=== PATIENT | male | born 1995 | race Caucasian/White ===

== ENCOUNTER 2022-12-22 16:04 | Emergency (ER) | payer OTHER, SELFPAY ==
[2022-12-22 16:07] VITALS: BP 124/58; PULSE 85; RESP 18; TEMP 36.8; O2SAT 97; BMI 25.8
--- NOTE | 2022-12-22 16:11 | DI.RAD.S_ITS ---
PROCEDURE: XR ANKLE RT MIN 3V INDICATIONS: fall with injury TECHNIQUE: 3 views of the ankle were acquired. COMPARISON: None. FINDINGS: Bones: Spiral fracture through the distal tibia shaft. Soft tissues: No tibiotalar joint effusion. Achilles tendon appears normal. IMPRESSION: Spiral fracture through the distal tibia shaft. Dictated by: Ever Martínez M.D. on 12/22/2022 at 16:56 Approved by: Ever Martínez M.D. on 12/22/2022 at 16:57
--- NOTE | 2022-12-22 16:53 | DI.RAD.S_ITS ---
PROCEDURE: XR TIBIA FUBULA RT 2V INDICATIONS: distal tibia fracture TECHNIQUE: 2 views of the tibia and fibula were acquired. COMPARISON: [facility], CR, XR ANKLE RT MIN 3V, 12/22/2022, 16:31. FINDINGS: Bones: Mildly displaced fracture lines can be seen involving the distal tibial shaft. No associated fibular fracture is seen. No more proximal fracture can be seen. Incidental note is made of an enthesophyte at the Achilles insertion. Soft tissues: No suspicious soft tissue calcifications or masses. IMPRESSION: Distal tibial shaft fracture. No additional more proximal fracture can be seen. Dictated by: Dave Kelly M.D. on 12/22/2022 at 16:36 Approved by: Dave Kelly M.D. on 12/22/2022 at 16:37
--- NOTE | 2022-12-22 17:02 | ED.LOWEXIN ---
HPI - Extremity Injury (Lower) General Chief Complaint: Extremity Injury, Lower Stated Complaint: rt ankle injury Time Seen by Provider: 12/22/22 16:51 Source: patient Mode of arrival: Wheelchair History of Present Illness HPI Narrative: 27-year-old male who is here for evaluation of right lower extremity injury. He states that he was wrestling left see evening and felt and heard a pop in his right ankle. Since that time has had quite a bit of difficulty walking on it. Is also having swelling. He did wrap it with an Urban bandage. No prior injury. Related Data Allergies Allergy/AdvReac Type Severity Reaction Status Date / Time No Known Drug Allergies Allergy Verified 12/22/22 16:07 Review of Systems Constitutional Constitutional: Reports system reviewed and no additional complaints, except as documented Musculoskeletal Musculoskeletal: Reports system reviewed and no additional complaints, except as documented Integumentary/Breasts Skin/Breast: Reports system reviewed and no additional complaints, except as documented Neurologic Neurologic: Reports system reviewed and no additional complaints, except as documented Patient History Social History Smoking Status: Never smoker Smoking Status: Never smoker alcohol intake frequency: a few times a month Substance Use Type: does not use Exam Initial Vital Signs Initial Vital Signs: Vital Signs Temperature 98.3 F 12/22/22 16:07 Pulse Rate 85 12/22/22 16:07 Respiratory Rate 18 12/22/22 16:07 Blood Pressure 124/58 L 12/22/22 16:07 Pulse Oximetry 97 12/22/22 16:07 Oxygen Delivery Method Room Air 12/22/22 16:07 HENME Head: normal to inspection and normocephalic Skin General: no rashes or lesions noted Neuro Sensory Exam: no sensory deficits noted Extrem Other: No proximal fibula tenderness. No proximal tibia tenderness. He is tender on the distal tibia. Also tender along the lateral malleolus. No foot tenderness. Achilles tendon is intact. Procedures Orthopedic Splinting/Casting Injury #1: Side: right Lower Extremity Injury Location: lower leg Lower Extremity Immobilizer: posterior splint and stirrup splint Other Orthopedic Equipment: crutches Post splinting neuro exam: intact Post splinting vascular exam: intact Placed by: Nursing Course Orders Ordered: ED Orders 12/22/22 16:11 XR ankle RT min 3V Stat 12/22/22 16:53 XR tibia fibula RT 2V Stat Vital Signs Vital signs: Vital Signs - 8 hr 12/22/22 16:07 Temperature 98.3 F Pulse Rate 85 Respiratory Rate 18 Blood Pressure 124/58 L Pulse Oximetry 97 Oxygen Delivery Method Room Air MDM - Extremity Injury (Lower) Imaging Data Extremity x-ray #1: Radiologist's Impression: PROCEDURE:? XR ANKLE RT MIN 3V ? INDICATIONS:? fall with injury ? TECHNIQUE:? 3 views of the ankle were acquired.? ? COMPARISON:? None. ? FINDINGS:? ? Bones:? Spiral fracture through the distal tibia shaft. ? Soft tissues:? No tibiotalar joint effusion.? Achilles tendon appears normal.? ? ? IMPRESSION:? Spiral fracture through the distal tibia shaft. Extremity x-ray #2: Radiologist's Impression: PROCEDURE:? XR TIBIA FUBULA RT 2V ? INDICATIONS:? distal tibia fracture ? TECHNIQUE:? 2 views of the tibia and fibula were acquired.? ? COMPARISON:? [facility], , XR ANKLE RT MIN 3V, 12/22/2022, 16:31. ? FINDINGS:? ? Bones:? Mildly displaced fracture lines can be seen involving the distal tibial shaft.? No associated fibular fracture is seen.? No more proximal fracture can be seen. ? Incidental note is made of an enthesophyte at the Achilles insertion. ? Soft tissues:? No suspicious soft tissue calcifications or masses.? IMPRESSION:? Distal tibial shaft fracture. ? No additional more proximal fracture can be seen. [facility] Narrative Medical decision making narrative: Patient does have a isolated distal tibia fracture. Does correspond to where he is having the discomfort. He was placed in a splint as described above. Was made nonweightbearing. Discharged home with crutches. Was given follow-up instructions. He expressed understanding and agreement. Discharge Plan Departure Patient Disposition: Home Clinical Impression: Fracture, tibia, shaft Instructions: How to Use Crutches, DI for Shinbone Fracture, How to Take Care of Your Splint Activity Restrictions/Additional Instructions: The splint that was placed today does need to be treated like a cast. You need to keep it on and keep it clean and keep it dry. Your to be nonweightbearing on your right leg. Use the crutches. Tomorrow contact [place] medical [place] Return to the emergency department for new symptoms. Referrals: Poli Mahan MD [Primary Care Provider] - Stand Alone Forms: Patient Portal/API
[2022-12-22 18:22] VITALS: BP 135/64; PULSE 82; RESP 16; O2SAT 97
== END 2022-12-22 18:24 | disposition home or self-care (01) ==
PROVIDERS: Emergency Provider Emergency Medicine
DX: S82.201A Unspecified fracture of shaft of right tibia, initial encounter for closed fracture (principal); X58.XXXA Exposure to other specified factors, initial encounter; Y93.72 Activity, wrestling
CPT/HCPCS: 29515; 73590; 73610; 99283